=== PATIENT | male | born 1970 | race Caucasian/White ===

== ENCOUNTER 2019-07-29 11:45 | Inpatient (IN) ==
[2019-07-29] MEDS ORDERED: Aspirin 81 MG TAB.CHEW PO STA (11:56)
[2019-07-29 12:21] LABS: Basophils # 0.1 K/mcL (0.0-0.2); Basophils % 1.1 %; Eosinophils # 0.2 K/mcL (0.0-0.6); Hematocrit 44.6 % (37.5-50.1); Hemoglobin 15.1 g/dL (12.9-16.9); Immature Granulocytes % 0.2 % (0-4); Lymphocytes # 2.3 K/mcL (0.6-4.6); Mean Corpuscular HGB Conc 33.9 g/dL (31.6-35.5); Mean Corpuscular Hemoglobin 27.9 pg (28.0-33.3); Mean Corpuscular Volume 82.4 fL (83.0-100.0); Monocytes # 0.8 K/mcL (0.0-1.3); Monocytes % 9.8 %; Neutrophils # 4.8 K/mcL (1.6-8.9); Platelet Count 285 K/mcL (140-400); Red Blood Count 5.41 M/mcL (4.19-5.50); Red Cell Distribution Width 13.2 % (11.5-14.5); Segmented Neutrophils % 58.9 %; White Blood Count 8.1 K/mcL (4.3-11.1)
[2019-07-29 12:24] LABS: Prothrombin Time 11.9 Seconds (9.4-12.1)
[2019-07-29 12:27] LABS: Activated Partial Thrombo Time 31.6 Seconds (26.0-36.0)
[2019-07-29] MEDS: Nitroglycerin 0.4 MG TAB.SUBL SL PRN ×2 (12:38→19:45)
[2019-07-29 12:43] LABS: BUN/Creatinine Ratio 14 (6-26); Blood Urea Nitrogen 12 mg/dL (6-20); Calcium 9.8 mg/dL (8.6-10.3); Carbon Dioxide 29 mEq/L (23-29); Chloride 103 mEq/L (98-107); Glucose 98 mg/dL (70-105); Osmolality,Calculated 288 (280-300); Potassium 4.1 mEq/L (3.5-5.1); Sodium 139 mEq/L (136-145); eGFR For African Americans > 60 (> 60); eGFR For Non-African Americans > 60 (> 60)
[2019-07-29 12:46] LABS: Troponin I 0.04 ng/mL (< 0.04)
[2019-07-29] MEDS ORDERED: Acetaminophen 325 MG TABLET PO PRN (13:27)
[2019-07-29] MEDS ORDERED: Ondansetron 4 MG/2 ML VIAL IVP PRN (13:27)
[2019-07-29] MEDS ORDERED: Naloxone 0.4 MG/ML INJ IVP PRN (13:27)
[2019-07-29] MEDS ORDERED: Morphine Sulfate 2 MG/ML SYRINGE IVP PRN (13:32)
[2019-07-29] MEDS ORDERED: *HR* Heparin 5,000 UNIT/ML VIAL IVP ONE (14:02)
[2019-07-29] MEDS ORDERED: *HR* Heparin 5,000 UNIT/ML VIAL IVP PRN ×2 (14:02)
[2019-07-29 15:02] LABS: Hematocrit 40.9 % (37.5-50.1); Hemoglobin 14.4 g/dL (12.9-16.9); Mean Corpuscular HGB Conc 35.2 g/dL (31.6-35.5); Mean Corpuscular Hemoglobin 28.8 pg (28.0-33.3); Mean Corpuscular Volume 81.8 fL (83.0-100.0); Mean Platelet Volume 9.8 fL (9.4-12.4); Platelet Count 268 K/mcL (140-400); Red Cell Distribution Width 13.2 % (11.5-14.5); White Blood Count 8.4 K/mcL (4.3-11.1)
[2019-07-29 15:05] LABS: INR 1.1
[2019-07-29 15:08] LABS: Heparin anti-factor XA UFH < 0.04 IU/mL (0.30-0.70)
[2019-07-29] MEDS: Heparin 25,000 UNIT/250 ML D5W 25,000 UNIT/250 ML IV.SOLN IVC SCH (15:39)
[2019-07-29] MEDS ORDERED: GI Cocktail 40 ML EACH PO ONE (19:39)
[2019-07-29] MEDS ORDERED: Isovue-370 500 ML BOTTLE IVP ONE (19:39)
[2019-07-30 03:45] LABS: Basophils # 0.1 K/mcL (0.0-0.2); Eosinophils # 0.1 K/mcL (0.0-0.6); Eosinophils % 1.4 %; Hematocrit 40.8 % (37.5-50.1); Hemoglobin 13.7 g/dL (12.9-16.9); Immature Granulocytes % 0.1 % (0-4); Lymphocytes # 2.9 K/mcL (0.6-4.6); Lymphocytes % 30.5 %; Mean Corpuscular HGB Conc 33.6 g/dL (31.6-35.5); Mean Corpuscular Hemoglobin 28.5 pg (28.0-33.3); Mean Platelet Volume 10.1 fL (9.4-12.4); Monocytes # 0.8 K/mcL (0.0-1.3); Monocytes % 8.6 %; Neutrophils # 5.6 K/mcL (1.6-8.9); Platelet Count 249 K/mcL (140-400); Red Cell Distribution Width 13.2 % (11.5-14.5); Segmented Neutrophils % 58.4 %; White Blood Count 9.6 K/mcL (4.3-11.1)
[2019-07-30 04:11] LABS: Albumin/Globulin Ratio 1.4 (1.1-2.2); Bilirubin,Direct 0.1 mg/dL (0.0-0.2); Bilirubin,Indirect 0.5 mg/dL (0.0-1.0); Bilirubin,Total 0.6 mg/dL (0.3-1.0); Globulin 2.8 g/dL (2.4-3.5); Total Protein 6.8 g/dL (6.4-8.9)
[2019-07-30 04:12] LABS: BUN/Creatinine Ratio 14 (6-26); Blood Urea Nitrogen 11 mg/dL (6-20); Calcium 9.2 mg/dL (8.6-10.3); Carbon Dioxide 24 mEq/L (23-29); Chloride 103 mEq/L (98-107); Chol/HDL Ratio 5.4 (0-4.9); Cholesterol 182 mg/dL (< 200); Glucose 119 mg/dL (70-105); HDL Cholesterol 34 mg/dL (40-59); LDL Cholesterol,Calculated 123 mg/dL (0-99); Osmolality,Calculated 285 (280-300); Potassium 3.8 mEq/L (3.5-5.1); Sodium 137 mEq/L (136-145); Triglycerides 127 mg/dL (< 150); eGFR For African Americans > 60 (> 60); eGFR For Non-African Americans > 60 (> 60)
[2019-07-30] MEDS ORDERED: *HR* Heparin 10,000 UNIT/10 ML VIAL ONE ×2 (08:18→08:53)
[2019-07-30] MEDS ORDERED: 0.9 % Sodium Chloride 1,000 ML ONE ×2 (08:18→08:20)
[2019-07-30] MEDS ORDERED: Heparin 1,000 UNITS/500 mL 500 ML ONE (08:18)
[2019-07-30] MEDS ORDERED: Nitroglycerin 1,000 MCG/10 ML VIAL IV ONE (08:19)
[2019-07-30] MEDS ORDERED: ISOVUE-370 200 ML INFUS..BTL ONE ×2 (08:19→08:20)
[2019-07-30] MEDS ORDERED: Verapamil 5 MG/2 ML VIAL ONE (08:31)
[2019-07-30] MEDS ORDERED: *HR* Midazolam HCl 2 MG/2 ML VIAL ONE ×2 (08:50→09:25)
[2019-07-30] MEDS ORDERED: *HR* FentaNYL (PF) 100 MCG/2 ML VIAL ONE (08:51)
[2019-07-30] MEDS: Aspirin Enteric Coated 81 MG Tablet PO SCH (10:00)
[2019-07-30] MEDS ORDERED: Fluticasone Propionate Nasal 50 MCG/SPRAY BOTTLE NS PRN (14:17)
[2019-07-30] MEDS: Heparin 25,000 UNIT/250 ML D5W 25,000 UNIT/250 ML IV.SOLN IVC SCH (21:23)
[2019-07-31 06:32] VITALS: BP 107/66
[2019-07-31] MEDS: Aspirin Enteric Coated 81 MG Tablet PO SCH (08:02)
[2019-07-31] MEDS ORDERED: amLODIPine 5 MG TABLET PO SCH (09:00)
[2019-07-31] MEDS ORDERED: Metoprolol XL (24 HR) Succ 25 MG TAB.ER.24H PO SCH (09:00)
[2019-07-31] MEDS ORDERED: Multivit/Ca/Min/Fe/FA 1 TAB TABLET PO SCH (09:00)
[2019-07-31] MEDS ORDERED: Ascorbic Acid 500 MG TABLET PO SCH (09:00)
== END 2019-07-31 10:40 | disposition home or self-care (01) | DRG 282 ==
LOC: EMEROOARM 11:45 → 3BNU 11:45 → SUATTDRO 23:41
PROVIDERS: ADMIT Pharmacist; ATTEND Family Medicine